=== PATIENT | female | born 1995 | race Caucasian/White ===

== ENCOUNTER 2017-11-28 20:58 | Emergency (ER) | payer OTHER ==
[2017-11-28] MEDS: ACETAMINOPHEN 500 MG TAB PO (22:20)
== END 2017-11-28 23:06 | disposition home or self-care (01) ==
LOC: FTE 20:58
DX: S09.90XA Unspecified injury of head, initial encounter (principal); S80.02XA Contusion of left knee, initial encounter; W22.8XXA Striking against or struck by other objects, initial encounter; Y92.9 Unspecified place or not applicable
CPT/HCPCS: 99282; Z7502